=== PATIENT | male | born 1970 | race Two or more races ===

== ENCOUNTER 2019-11-04 07:39 | Emergency (ER) | payer OTHER ==
[~2019-11-04] VITALS: Ht 182.9 cm; Wt 79.4 kg
[~2019-11-04 07:39] MED LIST: CIPRO500 MG PO; LEVSINEX0.375 M1 PO; PEPCID40 MG PO
[2019-11-04] MEDS ORDERED: KETO10TA2 PO (13:16)
[2019-11-04] MEDS ORDERED: NORFLEX100MG PO (13:16)
== END 2019-11-04 13:35 | disposition home or self-care (01) ==
LOC: ER 07:39
DX: M54.5 Low back pain (principal); R10.2 Pelvic and perineal pain

== ENCOUNTER 2020-08-28 09:33 | Emergency (ER) | payer OTHER ==
[~2020-08-28] VITALS: Ht 182.9 cm; Wt 79.4 kg
[~2020-08-28 09:33] MED LIST changes: +KETO10TA2 PO; +NORFLEX100MG PO
== END 2020-08-28 13:26 | disposition home or self-care (01) ==
LOC: ER 09:33
DX: M54.5 Low back pain (principal); M62.830 Muscle spasm of back

== ENCOUNTER 2021-09-18 08:34 | Emergency (ER) | payer OTHER ==
[~2021-09-18] VITALS: Ht 208.3 cm; Wt 81.6 kg
== END 2021-09-18 13:41 | disposition home or self-care (01) ==
LOC: ER 08:34
DX: M54.59 Other low back pain (principal); R10.13 Epigastric pain; K76.0 Fatty (change of) liver, not elsewhere classified; N20.0 Calculus of kidney

== ENCOUNTER 2024-09-29 17:44 | Emergency (ER) | payer OTHER ==
[~2024-09-29] VITALS: Ht 182.9 cm; Wt 108.9 kg
[2024-09-29] MEDS ORDERED: CRESTOR40 MG PO (18:26)
[2024-09-29] MEDS ORDERED: 0.9 % SODIUM CHLORIDE 1,000 ML IV STA (18:50)
[2024-09-29] MEDS ORDERED: FAMOTIDINE/PF 20 MG in 0.9 % SODIUM CHLORIDE 8 ML IV PUSH STA (18:50)
[2024-09-29] MEDS ORDERED: FAMOTIDINE/PF 20 MG/2 ML VIAL ONE (19:03)
[2024-09-29 19:25] LABS: HEMATOCRIT 41.8 % (39.0-48.0); HEMOGLOBIN 14.9 g/dL (13-16.00); MEAN CELL VOLUME 91.4 fL (80.0-100.00); MEAN CORPUSCULAR HEMOGLOBIN 32.5 pg (27.00-32.0); MEAN CORPUSCULAR HGB CONC 35.5 g/dl (32.0-36.0); PLATELET COUNT 345 K/uL (150-450); RED BLOOD COUNT 4.57 M/uL (4.00-6.00); RED CELL DISTRIBUTION WIDTH 12.7 % (11.5-14.5)
[2024-09-29 20:15] LABS: CREATININE SERUM 0.92 mg/dL (0.70-1.30); GFR 86.06; POTASSIUM 3.91 mEq/L (3.5-5.1)
[2024-09-29 20:28] LABS: URINE APPEARANCE Clear; URINE BILIRRUBIN Negative (NEGATIVE); URINE BLOOD Negative; URINE COLOR Yellow; URINE GLUCOSE Negative (NEGATIVE); URINE KETONE Negative (NEGATIVE); URINE LEUKOCYTE Negative; URINE NITRATE Negative; URINE PROTEIN Negative (NEGATIVE)
[2024-09-29 20:32] LABS: URINE BACTERIA 13.4 uL (0.0-1933); URINE EPITHELIAL CELLS 1.4 uL (0.0-38.8); URINE RBC 7.6 uL (0.0-20.8); URINE WBC 4.7 uL (0.0-23.2)
[2024-09-29] MEDS ORDERED: BARIUM SULFATE 450 ML ORAL.SUSP PO ONE (22:22)
[2024-09-30] MEDS ORDERED: INTESTINEX680 M2 PO (03:02)
[2024-09-30] MEDS ORDERED: ZOFRAN8 MG PO (03:02)
[2024-09-30] MEDS ORDERED: LEVSIN/SL0.125 MG SL (03:02)
== END 2024-09-30 04:03 | disposition home or self-care (01) ==
LOC: ER 17:44
PROVIDERS: Emergency Medicine
DX: K52.89 Other specified noninfective gastroenteritis and colitis (principal); N20.0 Calculus of kidney